=== PATIENT | female | born 1955 | race Caucasian/White ===

== ENCOUNTER 2016-12-11 10:21 | Emergency (ER) | payer MEDICAID ==
[2016-12-11 10:32] VITALS: BMI 28.1
[2016-12-11 10:36] VITALS: BP 130/80; TEMP 97.9
[2016-12-11] MEDS ORDERED: Tetracaine 0.5% Ophth (OR ONLY) ONE (10:39)
[2016-12-11] MEDS ORDERED: Fluorescein 1 mg Ophthalmic Strip ONE (10:39)
--- NOTE | 2016-12-11 10:46 | C.PDOC ---
History Of Present Illness Patient is a 61 year old female who presents to the ER with a complaint of a red right eye that began this morning. Patient states she woke up with watery discharge, irritation, and mild pain. Patient reports walking the other day when something fell in her eye and she washed it out. Patient denies any pain or discomfort until today. Patient has a history of hypertension and denies any vision changes. Time Seen by Provider: 12/11/16 10:27 Chief Complaint (Nursing): Eye Problem History Per: Patient History/Exam Limitations: no limitations Onset/Duration Of Symptoms: Hrs (Since AM) Current Symptoms Are (Timing): Still Present Injury To Eye?: No Associated Symptoms: Pain (Mild), Discharge From Eye. denies: Decreased Vision Past Medical History Reviewed: Historical Data, Nursing Documentation, Vital Signs Vital Signs: Last Vital Signs Temp 97.9 F 12/11/16 10:35 Pulse 92 H 12/11/16 10:49 Resp 18 12/11/16 10:49 BP 130/80 12/11/16 10:35 Pulse Ox 98 12/11/16 10:56 - Medical History PMH: Asthma, HTN Surgical History: Appendectomy - [facility] Procedures CLOSED ENDOSCOPIC BIOPSY OF LARGE INTESTINE (05/21/13) CLOSURE SKIN & SUBCUTANEOUS NEC (06/11/13) ESOPHAGOGASTRODUODENOSCOPY [EGD] W/CLOSED BIOPSY (09/30/14) TETANUS TOXOID ADMINIST (06/11/13) Family History: States: Unknown Family Hx - Social History Hx Tobacco Use: No Hx Alcohol Use: No Hx Substance Use: No - Immunization History Hx Tetanus Toxoid Vaccination: No Hx Influenza Vaccination: No Hx Pneumococcal Vaccination: No Review Of Systems Eyes: Positive for: Pain (Mild), Redness, Other (Irritation). Negative for: Vision Change Physical Exam - Physical Exam Additional Physical Exam Comments: Constitutional: No acute distress. Head: Normocephalic. Atraumatic. Eyes: Injected conjunctivae. Watery discharge. Perilimbic sparing. No corneal defect with fluorescein stain ENT: Moist mucous membranes. Respiratory: No acute respiratory distress. Patient speaking in complete sentences. Skin: No rashes. Neurologic: Alert, no focal deficit. ED Course And Treatment O2 Sat by Pulse Oximetry: 98 Medical Decision Making Medical Decision Making: Will be treated as conjunctivitis, will treat with antibiotic eye drops. Disposition - Disposition Referrals: Moe Guevara MD [Primary Care Provider] - Disposition: HOME/ ROUTINE Disposition Time: 10:44 Condition: STABLE Prescriptions: Polymyxin/Trimethoprim Sulfate [Polytrim Ophth Soln] 1 drop OD Q3H #1 bottle Instructions: Conjunctivitis (ED) - Clinical Impression Clinical Impression: Conjunctivitis - Scribe Statement The provider has reviewed the documentation as recorded by the Scribe Jasper Smith All medical record entries made by the Svenibe were at my direction and personally dictated by me. I have reviewed the chart and agree that the record accurately reflects my personal performance of the history, physical exam, medical decision making, and the department course for this patient. I have also personally directed, reviewed, and agree with the discharge instructions and disposition.
[2016-12-11 10:50] VITALS: PULSE 92; RESP 18
[2016-12-11 10:54] VITALS: O2SAT 98
== END 2016-12-11 10:54 | disposition home or self-care (01) ==
LOC: C.ER 10:21 → SUPCPDRO 10:21 → C.ER 10:54
DX: H10.9 Unspecified conjunctivitis (principal)

== ENCOUNTER 2017-10-24 13:50 | Emergency (ER) | payer MEDICAID ==
[2017-10-24 13:50] VITALS: BMI 28.1
--- NOTE | 2017-10-24 17:14 | C.PDOC ---
History Of Present Illness 62-year-old female with PMHX of asthma and HTN presents to the emergency department with complaints of one week duration of intermittent chest pressure, palpitations and SOB, worse since 2pm today. Patient describes the sensation as one of her heart racing. Patient notes that these symptoms are not similar to her prior asthma exacerbations. Patient denies nausea/vomiting, abdominal pain, diarrhea, cough, fever. Time Seen by Provider: 10/24/17 16:53 Chief Complaint (Nursing): Shortness Of Breath History Per: Patient History/Exam Limitations: no limitations Onset/Duration Of Symptoms: Days Current Symptoms Are (Timing): Still Present Quality: Pressure, "Pain" Current Respiratory Medications: See Home Med List Severity: Mild Past Medical History Reviewed: Historical Data, Nursing Documentation, Vital Signs Vital Signs: Last Vital Signs Temp 98.2 F 10/24/17 14:06 Pulse 126 H 10/24/17 14:06 Resp 20 10/24/17 17:05 BP 142/78 10/24/17 14:06 Pulse Ox 96 10/24/17 18:35 - Medical History PMH: Asthma, HTN Surgical History: Appendectomy - [facility] Procedures CLOSED ENDOSCOPIC BIOPSY OF LARGE INTESTINE (05/21/13) CLOSURE SKIN & SUBCUTANEOUS NEC (06/11/13) ESOPHAGOGASTRODUODENOSCOPY [EGD] W/CLOSED BIOPSY (09/30/14) TETANUS TOXOID ADMINIST (06/11/13) Family History: States: No Known Family Hx - Social History Hx Tobacco Use: No Hx Alcohol Use: No Hx Substance Use: No - Immunization History Hx Tetanus Toxoid Vaccination: No Hx Influenza Vaccination: No Hx Pneumococcal Vaccination: No Review Of Systems Except As Marked, All Systems Reviewed And Found Negative. Constitutional: Negative for: Fever, Weakness Cardiovascular: Positive for: Chest Pain (Pressure). Negative for: Edema, Light Headedness Respiratory: Positive for: Shortness of Breath. Negative for: Cough Gastrointestinal: Negative for: Nausea, Vomiting Musculoskeletal: Negative for: Neck Pain, Back Pain Neurological: Negative for: Weakness, Numbness, Headache, Dizziness Physical Exam - Physical Exam Appears: Well, Non-toxic, No Acute Distress, Other (Speaking in full sentences) Skin: Normal Color, Warm, Dry, No Diaphoretic, No Rash Head: Normacephalic Eye(s): bilateral: PERRL Nose: Normal Oral Mucosa: Moist Lips: Normal Appearing Neck: Normal ROM Chest: Symmetrical Cardiovascular: Rhythm Regular, No Murmur Respiratory: No Decreased Breath Sounds, No Accessory Muscle Use, No Rales, No Rhonchi, No Wheezing Gastrointestinal/Abdominal: Soft, No Tenderness, No Guarding Extremity: Normal ROM Neurological/Psych: Oriented x3, Normal Speech ED Course And Treatment - Laboratory Results Result Diagrams: 10/24/17 17:16 10/24/17 17:16 ECG: Interpreted By Me, Viewed By Me (sinus tachycardia 129 bpm, normal axis, no acute ST/T wave changes) ECG Rhythm: Sinus Rhythm ECG Interpretation: Abnormal Rate From EC O2 Sat by Pulse Oximetry: 96 (RA) Pulse Ox Interpretation: Normal - Radiology CXR: Interpreted by Me, Viewed By Me CXR Interpretation: Yes: No Acute Disease. No: Infiltrates Progress Note: EKG, Bloodwork, Chest X-Ray ordered and reviewed. Patient given PO ASA (she confirms she has no allergic rxn with ASA). - Physician Consult Information Physician Contacted: Sanchez Alberts Outcome Of Conversation: Discussed patient with hospitalist, agrees with admission - will be put in under Dr. Garza, [facility] hospitalist. Disposition - Disposition Disposition Time: 18:35 Condition: STABLE Forms: [facility] (South [place]) - Clinical Impression Clinical Impression: Chest pain, Dyspnea, Palpitations - Scribe Statement The provider has reviewed the documentation as recorded by the Scribe (Glenroy Garcia) All medical record entries made by the Scribe were at my direction and personally dictated by me. I have reviewed the chart and agree that the record accurately reflects my personal performance of the history, physical exam, medical decision making, and the department course for this patient. I have also personally directed, reviewed, and agree with the discharge instructions and disposition.
[2017-10-24 17:22] LABS: BASO # 0.1 K/uL (0.0-0.2); EOS # 0.9 K/uL (0.0-0.7); EOS % 10.8 % (0.0-4.0); HEMOGLOBIN 12.7 g/dL (11.0-16.0); LYMPH # 2.9 K/uL (1.0-4.3); LYMPH % 36.6 % (20.0-40.0); MEAN CELL VOLUME 86.9 fL (81.0-99.0); MEAN CORPUSCULAR HEMOGLOBIN 28.8 pg (27.0-31.0); MEAN CORPUSCULAR HGB CONC 33.2 g/dL (33.0-37.0); MONO # 0.5 K/uL (0.0-0.8); MONO % 6.1 % (0.0-10.0); NEUT # 3.6 K/uL (1.8-7.0); NEUT % 45.5 % (50.0-75.0); RBC 4.41 Mil/uL (3.80-5.20); RED CELL DISTRIBUTION WIDTH 13.6 % (11.5-14.5); WHITE BLOOD COUNT 7.9 K/uL (4.8-10.8)
--- NOTE | 2017-10-24 17:32 | RAD ---
PROCEDURE: CHEST RADIOGRAPH, 1 VIEW HISTORY: SOB COMPARISON: None available. FINDINGS: LUNGS: Suspect minor left basilar atelectasis. PLEURA: No pneumothorax or pleural fluid seen. CARDIOVASCULAR: Heart size is within range of normal. Aorta is slightly ectatic and uncoiled. OSSEOUS STRUCTURES: No significant abnormalities. VISUALIZED UPPER ABDOMEN: Normal. OTHER FINDINGS: None. IMPRESSION: Minor left basilar atelectasis
[2017-10-24 17:34] LABS: PARTIAL THROMBOPLASTIN TIME 30 SECONDS (21-34); PROTHROMBIN TIME 10.6 SECONDS (9.7-12.2)
[2017-10-24 17:36] LABS: ALB/GLOB RATIO 1.3 (1.0-2.1); ALBUMIN 4.3 g/dL (3.5-5.0); ALT/SGPT 28 U/L (9-52); AST/SGOT 26 U/L (14-36); BLOOD UREA NITROGEN 17 mg/dL (7-17); CALCIUM 9.6 mg/dl (8.6-10.4); GFR AFRICAN-AMERICAN > 60; GFR NON-AFRICAN AMERICAN > 60
[2017-10-24 17:38] LABS: D DIMER < 200 ng/mlDDU (0-243)
[2017-10-24 17:47] LABS: CK-MB 2.38 ng/mL (0.0-3.38)
[2017-10-24 19:19] LABS: BARBITURATES, UR NEGATIVE (NEGATIVE); BENZODIAZEPINES, UR NEGATIVE (NEGATIVE); OPIATES, UR NEGATIVE (NEGATIVE); PHENCYCLIDINE, UR NEGATIVE (NEGATIVE)
--- NOTE | 2017-10-24 20:26 | CP.PCM.HP ---
<Joseline Curry - Last Filed: 10/24/17 23:43> History of Present Illness - History of Present Illness History of Present Illness: CC: "My heart is pumping too much and I can't breath." HPI: Patient is a 62 year old female with a past medical history of asthma, hypertension, hyperlipidemia, and colon cancer, who presents to the ED with complaints of shortness of breath palpitations, and chest past that have occurred intermittently over the last week. She reports the symptoms worsened today and that is why she came to the ED. She states she was sitting on the cough when her heart starting "pumping" really fast. She proceeded to get up, walk to the kitchen, and as we was walking, she became very nervous, had chest pain, and had to hold herself up so that she does not fall. Patient states she has chest pain located in the center of her chest that is worse with breathing and feels like a pressure or heavy weight. She has never experienced this in the past. She tried using her inhaler three times today with minimal relief. Patient also notes that she becomes slightly more short of breath when laying down for 1 week. She uses 2 pillows. She lives [address] flights up and becomes short of breath when walking the stairs, but notes that she has always felt short of breath climbing stairs. She currently admits to weakness, headache, chest pain, palpitations, and shortness of breath. Patient denies abdominal pain, n/v, f/c, dysuria, leg pain/swelling, rash, and dizziness. PMD: Dr. Guevara Oncologist: Dr. Simms PMHx: Asthma, HTN, HLD, Colon cancer SurgHx: partial oopherectomy, appendectomy, hemicolectomy FamHx: denies SocHx: denies tobacco, alcohol, and drug use; lives with her son in [place], [place]; Unemployed Allergies: Ciprofloxacin, IV contrast, Seafood, ibuprofen, ketorolac. (rxn: rash ) Medications: Amlodipine 5mg PO daily, Combivent/Respimat 20/100mcg BID. Present on Admission - Present on Admission Any Indicators Present on Admission: No Review of Systems - Constitutional Constitutional: Headache, Weakness. absent: Chills, Fever - EENT Eyes: absent: Change in Vision Ears: absent: Dizziness Nose/Mouth/Throat: absent: Sore Throat - Cardiovascular Cardiovascular: Chest Pain, Dyspnea, Palpitations, Rapid Heart Rate. absent: Leg Edema - Respiratory Respiratory: Dyspnea, Dyspnea on Exertion, Pain on Inspiration. absent: Cough - Gastrointestinal Gastrointestinal: Abdominal Pain. absent: Constipation, Diarrhea, Nausea, Vomiting - Genitourinary Genitourinary: absent: Dysuria, Hematuria, Urinary Frequency - Integumentary Integumentary: absent: Rash, Swelling - Neurological Neurological: Headaches, Weakness. absent: Abnormal Gait, Dizziness, Frequent Falls, Syncope - Psychiatric Psychiatric: absent: Anxiety - Endocrine Endocrine: Palpitations Past Patient History - Infectious Disease Hx of Infectious Diseases: None - Past Medical History & Family History Past Medical History?: Yes - Past Social History Smoking Status: Never Smoked - CARDIAC Hx Hypertension: Yes - PULMONARY Hx Asthma: Yes - NEUROLOGICAL Hx Neurological Disorder: No - HEENT Hx HEENT Problems: No - RENAL Hx Chronic Kidney Disease: No - ENDOCRINE/METABOLIC Hx Endocrine Disorders: No - HEMATOLOGICAL/ONCOLOGICAL Hx Blood Disorders: Yes Hx Cancer: Yes (COLON CA) Hx Chemotherapy: Yes - INTEGUMENTARY Hx Dermatological Problems: No - MUSCULOSKELETAL/RHEUMATOLOGICAL Hx Musculoskeletal Disorders: No - GASTROINTESTINAL Hx Gastrointestinal Disorders: Yes Hx Colostomy: Yes - GENITOURINARY/GYNECOLOGICAL Hx Genitourinary Disorders: No - PSYCHIATRIC Hx Substance Use: No - SURGICAL HISTORY Hx Appendectomy: Yes - ANESTHESIA Hx Anesthesia: Yes Hx Anesthesia Reactions: No Meds Allergies/Adverse Reactions: Allergies Allergy/AdvReac Type Severity Reaction Status Date / Time ciprofloxacin [From Cipro] Allergy Intermediate Verified 12/11/16 10:32 ciprofloxacin HCl Allergy Intermediate Verified 12/11/16 10:32 [From Cipro] FISH Allergy Intermediate Verified 12/11/16 10:32 Iodine and Iodide Containing Allergy Intermediate Verified 12/11/16 10:32 Produc ibuprofen [From Motrin] Allergy RASH Verified 12/11/16 10:32 ketorolac Allergy ITCHING Verified 12/11/16 10:32 seafood Allergy Intermediate Uncoded 12/11/16 10:32 Physical Exam - Constitutional Appears: No Acute Distress - Head Exam Head Exam: ATRAUMATIC, NORMAL INSPECTION - Eye Exam Eye Exam: EOMI, Normal appearance, PERRL - ENT Exam ENT Exam: Mucous Membranes Moist - Respiratory Exam Respiratory Exam: Clear to Auscultation Bilateral, NORMAL BREATHING PATTERN. absent: Rales, Rhonchi, Wheezes, Respiratory Distress - Cardiovascular Exam Cardiovascular Exam: Tachycardia, +S1, +S2. absent: Systolic Murmur - GI/Abdominal Exam GI & Abdominal Exam: Normal Bowel Sounds, Soft. absent: Distended, Firm, Guarding, Mass, Tenderness - Extremities Exam Extremities exam: Positive for: normal inspection. Negative for: pedal edema, tenderness, pedal pulses present - Neurological Exam Neurological exam: Alert, Oriented x3 - Psychiatric Exam Psychiatric exam: Normal Affect, Normal Mood - Skin Skin Exam: Dry, Intact, Normal Color, Warm Results - Vital Signs Recent Vital Signs: Last Vital Signs Temp 98.2 F 10/24/17 14:06 Pulse 126 H 10/24/17 14:06 Resp 20 10/24/17 17:05 BP 142/78 10/24/17 14:06 Pulse Ox 96 10/24/17 18:39 - Labs Result Diagrams: 10/24/17 17:16 10/24/17 17:16 Labs: Laboratory Results - last 24 hr 10/24/17 10/24/17 10/24/17 17:16 17:16 17:16 WBC 7.9 RBC 4.41 Hgb 12.7 Hct 38.3 MCV 86.9 MCH 28.8 MCHC 33.2 RDW 13.6 Plt Count 216 MPV 8.0 Neut % (Auto) 45.5 L Lymph % (Auto) 36.6 King % (Auto) 6.1 Eos % (Auto) 10.8 H Baso % (Auto) 1.0 Neut # (Auto) 3.6 Lymph # (Auto) 2.9 King # (Auto) 0.5 Eos # (Auto) 0.9 H Baso # (Auto) 0.1 PT 10.6 INR 1.0 APTT 30 D-Dimer, Quantitative < 200 Sodium 142 Potassium 3.5 L Chloride 102 Carbon Dioxide 28 Anion Gap 16 BUN 17 Creatinine 0.6 L Est GFR ( Amer) > 60 Est GFR (Non-Af Amer) > 60 POC Glucose (mg/dL) Random Glucose 97 Calcium 9.6 Total Bilirubin 0.3 AST 26 ALT 28 Alkaline Phosphatase 59 Total Creatine Kinase 120 CK-MB (Mass) 2.38 Troponin I < 0.0120 NT-Pro-B Natriuret Pep 55.0 Total Protein 7.6 Albumin 4.3 Globulin 3.3 Albumin/Globulin Ratio 1.3 TSH 3rd Generation Urine Opiates Screen Urine Methadone Screen Ur Barbiturates Screen Ur Phencyclidine Scrn Ur Amphetamines Screen U Benzodiazepines Scrn U Oth Cocaine Metabols U Cannabinoids Screen 10/24/17 10/24/17 10/24/17 17:28 18:45 18:45 WBC RBC Hgb Hct MCV MCH MCHC RDW Plt Count MPV Neut % (Auto) Lymph % (Auto) King % (Auto) Eos % (Auto) Baso % (Auto) Neut # (Auto) Lymph # (Auto) King # (Auto) Eos # (Auto) Baso # (Auto) PT INR APTT D-Dimer, Quantitative Sodium Potassium Chloride Carbon Dioxide Anion Gap BUN Creatinine Est GFR ( Amer) Est GFR (Non-Af Amer) POC Glucose (mg/dL) 101 Random Glucose Calcium Total Bilirubin AST ALT Alkaline Phosphatase Total Creatine Kinase CK-MB (Mass) Troponin I NT-Pro-B Natriuret Pep Total Protein Albumin Globulin Albumin/Globulin Ratio TSH 3rd Generation 1.74 Urine Opiates Screen Negative Urine Methadone Screen Negative Ur Barbiturates Screen Negative Ur Phencyclidine Scrn Negative Ur Amphetamines Screen Negative U Benzodiazepines Scrn Negative U Oth Cocaine Metabols Negative U Cannabinoids Screen Negative Assessment & Plan (1) Chest pain Assessment and Plan: Monitor on telemetry EKG: sinus tachycardia @129bpm Troponin x2- negative; f/u troponin #3 CKMB: 2.38, BNP 55 D-dimer <200 Chest xray: minor left basilar atelectasis TSH: 1.74 UDS: negative A1c: f/u results Lipid panel: f/u results Echo (01/2016): normal structure and function; EF normal range Echo (10/24/17): f/u results Status: Acute (2) Palpitations Assessment and Plan: Monitor on telemetry EKG: sinus tachycardia @129bpm Troponin x2- negative; f/u troponin #3 CKMB: 2.38, BNP 55 D-dimer <200 Chest xray: minor left basilar atelectasis TSH: 1.74 UDS: negative Echo (10/24/17): f/u results Status: Acute (3) Dyspnea Assessment and Plan: History of Asthma D- dimer: <200 Chest xray: minor left basilar atelectasis Continue home medication: Combivent/Respimat 1 puff BID Duonebs Q6 gemma O2 via nasal cannula prn Status: Acute (4) Asthma Assessment and Plan: History of Asthma Continue home medication: Combivent/Respimat 1 puff BID Duonebs Q6 gemma O2 via nasal cannula prn Status: Acute (5) HTN (hypertension) Assessment and Plan: Continue home medication: Amlodipine 5mg PO daily Continue to monitor Status: Acute (6) HLD (hyperlipidemia) Assessment and Plan: History of HLD, however, does not take medication. Lipid panel: f/u results Status: Acute (7) History of colon cancer Assessment and Plan: History of colon cancer Oncologist: Dr. Simms Not currently on chemotherapy/treatment. Patient follows up regularly every 6 months with oncologist. Status: Acute (8) Prophylactic measure Assessment and Plan: Heparin 5000sc Q8, SCDs Protonix 40mg PO daily Heart Healthy Diet, 2 Na Status: Acute <Danis Garza P - Last Filed: 10/25/17 00:57> Results - Vital Signs Recent Vital Signs: Last Vital Signs Temp 98.2 F 10/24/17 14:06 Pulse 126 H 10/24/17 14:06 Resp 20 10/24/17 17:05 BP 142/78 10/24/17 14:06 Pulse Ox 96 10/24/17 18:39 - Labs Result Diagrams: 10/24/17 17:16 10/24/17 17:16 Labs: Laboratory Results - last 24 hr 10/24/17 10/24/17 10/24/17 17:16 17:16 17:16 WBC 7.9 RBC 4.41 Hgb 12.7 Hct 38.3 MCV 86.9 MCH 28.8 MCHC 33.2 RDW 13.6 Plt Count 216 MPV 8.0 Neut % (Auto) 45.5 L Lymph % (Auto) 36.6 King % (Auto) 6.1 Eos % (Auto) 10.8 H Baso % (Auto) 1.0 Neut # (Auto) 3.6 Lymph # (Auto) 2.9 King # (Auto) 0.5 Eos # (Auto) 0.9 H Baso # (Auto) 0.1 PT 10.6 INR 1.0 APTT 30 D-Dimer, Quantitative < 200 Sodium 142 Potassium 3.5 L Chloride 102 Carbon Dioxide 28 Anion Gap 16 BUN 17 Creatinine 0.6 L Est GFR ( Amer) > 60 Est GFR (Non-Af Amer) > 60 POC Glucose (mg/dL) Random Glucose 97 Calcium 9.6 Phosphorus Magnesium Total Bilirubin 0.3 AST 26 ALT 28 Alkaline Phosphatase 59 Total Creatine Kinase 120 CK-MB (Mass) 2.38 Troponin I < 0.0120 NT-Pro-B Natriuret Pep 55.0 Total Protein 7.6 Albumin 4.3 Globulin 3.3 Albumin/Globulin Ratio 1.3 TSH 3rd Generation Urine Opiates Screen Urine Methadone Screen Ur Barbiturates Screen Ur Phencyclidine Scrn Ur Amphetamines Screen U Benzodiazepines Scrn U Oth Cocaine Metabols U Cannabinoids Screen Influenza Typ A,B (EIA) 10/24/17 10/24/17 10/24/17 17:28 18:45 18:45 WBC RBC Hgb Hct MCV MCH MCHC RDW Plt Count MPV Neut % (Auto) Lymph % (Auto) King % (Auto) Eos % (Auto) Baso % (Auto) Neut # (Auto) Lymph # (Auto) King # (Auto) Eos # (Auto) Baso # (Auto) PT INR APTT D-Dimer, Quantitative Sodium Potassium Chloride Carbon Dioxide Anion Gap BUN Creatinine Est GFR ( Amer) Est GFR (Non-Af Amer) POC Glucose (mg/dL) 101 Random Glucose Calcium Phosphorus Magnesium Total Bilirubin AST ALT Alkaline Phosphatase Total Creatine Kinase CK-MB (Mass) Troponin I NT-Pro-B Natriuret Pep Total Protein Albumin Globulin Albumin/Globulin Ratio TSH 3rd Generation 1.74 Urine Opiates Screen Negative Urine Methadone Screen Negative Ur Barbiturates Screen Negative Ur Phencyclidine Scrn Negative Ur Amphetamines Screen Negative U Benzodiazepines Scrn Negative U Oth Cocaine Metabols Negative U Cannabinoids Screen Negative Influenza Typ A,B (EIA) 10/24/17 10/24/17 21:21 21:26 WBC RBC Hgb Hct MCV MCH MCHC RDW Plt Count MPV Neut % (Auto) Lymph % (Auto) King % (Auto) Eos % (Auto) Baso % (Auto) Neut # (Auto) Lymph # (Auto) King # (Auto) Eos # (Auto) Baso # (Auto) PT INR APTT D-Dimer, Quantitative Sodium Potassium Chloride Carbon Dioxide Anion Gap BUN Creatinine Est GFR ( Amer) Est GFR (Non-Af Amer) POC Glucose (mg/dL) Random Glucose Calcium Phosphorus 3.6 Magnesium 1.8 Total Bilirubin AST ALT Alkaline Phosphatase Total Creatine Kinase CK-MB (Mass) Troponin I NT-Pro-B Natriuret Pep Total Protein Albumin Globulin Albumin/Globulin Ratio TSH 3rd Generation Urine Opiates Screen Urine Methadone Screen Ur Barbiturates Screen Ur Phencyclidine Scrn Ur Amphetamines Screen U Benzodiazepines Scrn U Oth Cocaine Metabols U Cannabinoids Screen Influenza Typ A,B (EIA) Negative for flu a/b Attending/Attestation - Attestation I have personally seen and examined this patient.: Yes I have fully participated in the care of the patient.: Yes I have reviewed all pertinent clinical information: Yes Notes (Text): * Presentation due to palpitations intermittent < then 1 min, off and on, x3 days worse today, chronic unchanged sob, patient has h/o asthma/bronchitis, tachycardia in ER only sinus, ddimer < 2, CXR fine. * H/o Colon cancer s/p surgery and chemo * H/o HTN Plan * Observe in tele to check any other rhythm then sinus, and related patient symptoms * Echo due to h/o chemo * If sinus on tele and patient c/o palpitations amlodipne could be changed to cardizem/verapamil * Holter out patient could be recommended if persistent symptoms
[2017-10-24 21:36] LABS: MAGNESIUM 1.8 mg/dL (1.6-2.3)
[2017-10-24] MEDS ORDERED: Potassium Chloride 20 mEq ER Tab PO ONE ×2 (22:27→22:37)
[2017-10-25 01:41] LABS: CK-MB 2.05 ng/mL (0.0-3.38)
[2017-10-25] MEDS: Albuterol-Ipratrop 3 mg / 0.5 (3 ml) UD INH SCH ×2 (02:35→09:31)
[2017-10-25] MEDS ORDERED: Albuterol-Ipratrop 3 mg / 0.5 (3 ml) UD ONE (03:29)
[2017-10-25 05:09] LABS: BASO # 0.1 K/uL (0.0-0.2); BASO % 0.8 % (0.0-2.0); EOS # 0.9 K/uL (0.0-0.7); EOS % 11.9 % (0.0-4.0); HEMOGLOBIN 12.6 g/dL (11.0-16.0); LYMPH # 3.2 K/uL (1.0-4.3); LYMPH % 40.9 % (20.0-40.0); MEAN CELL VOLUME 86.5 fL (81.0-99.0); MEAN CORPUSCULAR HEMOGLOBIN 28.3 pg (27.0-31.0); MEAN CORPUSCULAR HGB CONC 32.8 g/dL (33.0-37.0); MEAN PLATELET VOLUME 8.3 fL (7.2-11.7); MONO # 0.6 K/uL (0.0-0.8); MONO % 7.2 % (0.0-10.0); NEUT % 39.2 % (50.0-75.0); NRBC % 0.1 % (0.0-2.0); RBC 4.43 Mil/uL (3.80-5.20); RED CELL DISTRIBUTION WIDTH 13.9 % (11.5-14.5); WHITE BLOOD COUNT 7.7 K/uL (4.8-10.8)
[2017-10-25 05:29] LABS: LDL CHOLESTEROL 126 mg/dL (0-129)
[2017-10-25 05:51] LABS: ALB/GLOB RATIO 1.2 (1.0-2.1); ALBUMIN 3.9 g/dL (3.5-5.0); ALT/SGPT 28 U/L (9-52); AST/SGOT 25 U/L (14-36); BLOOD UREA NITROGEN 13 mg/dL (7-17); GFR AFRICAN-AMERICAN > 60; GFR NON-AFRICAN AMERICAN > 60; HDL CHOLESTEROL 49 mg/dL (30-70)
[2017-10-25 06:24] LABS: CK-MB 1.63 ng/mL (0.0-3.38)
[2017-10-25 07:50] LABS: MAGNESIUM 1.9 mg/dL (1.6-2.3)
[2017-10-25] MEDS ORDERED: Albuterol-Ipratrop 20 mcg/actuation (4 g) IH SCH (10:00)
[2017-10-25] MEDS ORDERED: Pantoprazole 40 mg EC Tab PO SCH (10:00)
--- NOTE | 2017-10-25 12:27 | CARD ---
APPROVED REPORT EKG Measurement Heart [id number] <Conclusion> Sinus tachycardia Otherwise normal ECG
--- NOTE | 2017-10-25 12:57 | CP.PCM.DIS ---
<Vandana Price - Last Filed: 10/25/17 12:54> Provider - Provider Date of Admission: 10/24/17 18:33 Attending physician: Danis Garza MD Time Spent in preparation of Discharge (in minutes): 35 Hospital Course - Lab Results Lab Results: Most Recent Lab Values WBC 7.7 K/uL (4.8-10.8) 10/25/17 04:51 RBC 4.43 Mil/uL (3.80-5.20) 10/25/17 04:51 Hgb 12.6 g/dL (11.0-16.0) 10/25/17 04:51 Hct 38.4 % (34.0-47.0) 10/25/17 04:51 MCV 86.5 fL (81.0-99.0) 10/25/17 04:51 MCH 28.3 pg (27.0-31.0) 10/25/17 04:51 MCHC 32.8 g/dL (33.0-37.0) L 10/25/17 04:51 RDW 13.9 % (11.5-14.5) 10/25/17 04:51 Plt Count 200 K/uL (130-400) 10/25/17 04:51 MPV 8.3 fL (7.2-11.7) 10/25/17 04:51 Neut % (Auto) 39.2 % (50.0-75.0) L 10/25/17 04:51 Lymph % (Auto) 40.9 % (20.0-40.0) H 10/25/17 04:51 [place] % (Auto) 7.2 % (0.0-10.0) 10/25/17 04:51 Eos % (Auto) 11.9 % (0.0-4.0) H 10/25/17 04:51 Baso % (Auto) 0.8 % (0.0-2.0) 10/25/17 04:51 Neut # (Auto) 3.0 K/uL (1.8-7.0) 10/25/17 04:51 Lymph # (Auto) 3.2 K/uL (1.0-4.3) 10/25/17 04:51 [place] # (Auto) 0.6 K/uL (0.0-0.8) 10/25/17 04:51 Eos # (Auto) 0.9 K/uL (0.0-0.7) H 10/25/17 04:51 Baso # (Auto) 0.1 K/uL (0.0-0.2) 10/25/17 04:51 PT 10.6 SECONDS (9.7-12.2) 10/24/17 17:16 INR 1.0 10/24/17 17:16 APTT 30 SECONDS (21-34) 10/24/17 17:16 D-Dimer, Quantitative < 200 ng/mlDDU (0-243) 10/24/17 17:16 Sodium 141 mmol/L (132-148) 10/25/17 04:51 Potassium 3.8 mmol/L (3.6-5.2) 10/25/17 04:51 Chloride 103 mmol/L (98-107) 10/25/17 04:51 Carbon Dioxide 27 mmol/L (22-30) 10/25/17 04:51 Anion Gap 15 (10-20) 10/25/17 04:51 BUN 13 mg/dL (7-17) 10/25/17 04:51 Creatinine 0.6 mg/dL (0.7-1.2) L 10/25/17 04:51 Est GFR ( Amer) > 60 10/25/17 04:51 Est GFR (Non-Af Amer) > 60 10/25/17 04:51 POC Glucose (mg/dL) 188 mg/dL (65-110) H 10/25/17 11:25 Random Glucose 102 mg/dL (65-105) 10/25/17 04:51 Hemoglobin A1c 5.8 % (4.2-6.5) 10/25/17 04:51 Calcium 9.0 mg/dl (8.6-10.4) 10/25/17 04:51 Phosphorus 3.6 mg/dL (2.5-4.5) 10/25/17 05:38 Magnesium 1.9 mg/dL (1.6-2.3) 10/25/17 05:38 Total Bilirubin 0.5 mg/dL (0.2-1.3) 10/25/17 04:51 AST 25 U/L (14-36) 10/25/17 04:51 ALT 28 U/L (9-52) 10/25/17 04:51 Alkaline Phosphatase 49 U/L (38-126) 10/25/17 04:51 Total Creatine Kinase 74 U/L (30-135) 10/25/17 05:38 CK-MB (Mass) 1.63 ng/mL (0.0-3.38) 10/25/17 05:38 Troponin I < 0.0120 ng/mL (0.00-0.120) 10/25/17 05:38 NT-Pro-B Natriuret Pep 55.0 pg/mL (0-900) 10/24/17 17:16 Total Protein 7.3 g/dL (6.3-8.3) 10/25/17 04:51 Albumin 3.9 g/dL (3.5-5.0) 10/25/17 04:51 Globulin 3.3 gm/dL (2.2-3.9) 10/25/17 04:51 Albumin/Globulin Ratio 1.2 (1.0-2.1) 10/25/17 04:51 Triglycerides 162 mg/dL (0-149) H 10/25/17 04:51 Cholesterol 189 mg/dL (0-199) 10/25/17 04:51 LDL Cholesterol Direct 126 mg/dL (0-129) 10/25/17 04:51 HDL Cholesterol 49 mg/dL (30-70) 10/25/17 04:51 TSH 3rd Generation 1.74 mIU/L (0.46-4.68) 10/24/17 18:45 Urine Opiates Screen Negative (NEGATIVE) 10/24/17 18:45 Urine Methadone Screen Negative (NEGATIVE) 10/24/17 18:45 Ur Barbiturates Screen Negative (NEGATIVE) 10/24/17 18:45 Ur Phencyclidine Scrn Negative (NEGATIVE) 10/24/17 18:45 Ur Amphetamines Screen Negative (NEGATIVE) 10/24/17 18:45 U Benzodiazepines Scrn Negative (NEGATIVE) 10/24/17 18:45 U Oth Cocaine Metabols Negative (NEGATIVE) 10/24/17 18:45 U Cannabinoids Screen Negative (NEGATIVE) 10/24/17 18:45 Influenza Typ A,B (EIA) Negative for flu a/b (NEGATIVE) 10/24/17 21:26 - Hospital Course Hospital Course: Patient is a 62 year old female with a past medical history of asthma, hypertension, hyperlipidemia, and colon cancer, who presents to the ED with complaints of shortness of breath palpitations, and chest past that have occurred intermittently over the last week. She reports the symptoms worsened today and that is why she came to the ED. She states she was sitting on the cough when her heart starting "pumping" really fast. She proceeded to get up, walk to the kitchen, and as we was walking, she became very nervous, had chest pain, and had to hold herself up so that she does not fall. Patient states she has chest pain located in the center of her chest that is worse with breathing and feels like a pressure or heavy weight. She has never experienced this in the past. She tried using her inhaler three times today with minimal relief. Patient also notes that she becomes slightly more short of breath when laying down for 1 week. She uses 2 pillows. She lives 4 flights up and becomes short of breath when walking the stairs, but notes that she has always felt short of breath climbing stairs. She currently admits to weakness, headache, chest pain, palpitations, and shortness of breath. Patient denies abdominal pain, n/v, f/c, dysuria, leg pain/swelling, rash, and dizziness. Patient was admitted to rule out ACS. Troponins were negative and EKG showed no ST segment changes. D-dimer was negative. CXR showed minor left basilar atelectasis. BNP was 55. Patient had echo which will be followed up as out patient. Patient was found to have high cholesterol so she was started on a statin which should be continued on discharge. Patient was told to follow up with her PCP within one week for follow up. Discharge Exam - Head Exam Head Exam: ATRAUMATIC, NORMAL INSPECTION - Eye Exam Eye Exam: EOMI, Normal appearance, PERRL - ENT Exam ENT Exam: Mucous Membranes Moist - Respiratory Exam Respiratory Exam: Clear to PA & Lateral, NORMAL BREATHING PATTERN, UNREMARKABLE - Cardiovascular Exam Cardiovascular Exam: RRR, +S1, +S2 - GI/Abdominal Exam GI & Abdominal Exam: Normal Bowel Sounds, Unremarkable - Extremities Exam Extremities exam: normal inspection - Neurological Exam Neurological exam: Alert, Normal Gait, Oriented x3 - Psychiatric Exam Psychiatric exam: Normal Affect, Normal Mood - Skin Skin Exam: Dry, Intact, Normal Color, Warm Discharge Plan - Discharge Medications Prescriptions: Simvastatin 10 mg PO HS #30 tablet - Follow Up Plan Condition: STABLE Disposition: HOME/ ROUTINE Instructions: Dyspnea (GEN) Additional Instructions: Please follow up with your primary care physician within 1 week. <Jesse Heard - Last Filed: 10/25/17 14:58> Provider - Provider Date of Admission: 10/24/17 18:33 Attending physician: Danis Garza MD Hospital Course - Lab Results Lab Results: Most Recent Lab Values WBC 7.7 K/uL (4.8-10.8) 10/25/17 04:51 RBC 4.43 Mil/uL (3.80-5.20) 10/25/17 04:51 Hgb 12.6 g/dL (11.0-16.0) 10/25/17 04:51 Hct 38.4 % (34.0-47.0) 10/25/17 04:51 MCV 86.5 fL (81.0-99.0) 10/25/17 04:51 MCH 28.3 pg (27.0-31.0) 10/25/17 04:51 MCHC 32.8 g/dL (33.0-37.0) L 10/25/17 04:51 RDW 13.9 % (11.5-14.5) 10/25/17 04:51 Plt Count 200 K/uL (130-400) 10/25/17 04:51 MPV 8.3 fL (7.2-11.7) 10/25/17 04:51 Neut % (Auto) 39.2 % (50.0-75.0) L 10/25/17 04:51 Lymph % (Auto) 40.9 % (20.0-40.0) H 10/25/17 04:51 [place] % (Auto) 7.2 % (0.0-10.0) 10/25/17 04:51 Eos % (Auto) 11.9 % (0.0-4.0) H 10/25/17 04:51 Baso % (Auto) 0.8 % (0.0-2.0) 10/25/17 04:51 Neut # (Auto) 3.0 K/uL (1.8-7.0) 10/25/17 04:51 Lymph # (Auto) 3.2 K/uL (1.0-4.3) 10/25/17 04:51 [place] # (Auto) 0.6 K/uL (0.0-0.8) 10/25/17 04:51 Eos # (Auto) 0.9 K/uL (0.0-0.7) H 10/25/17 04:51 Baso # (Auto) 0.1 K/uL (0.0-0.2) 10/25/17 04:51 PT 10.6 SECONDS (9.7-12.2) 10/24/17 17:16 INR 1.0 10/24/17 17:16 APTT 30 SECONDS (21-34) 10/24/17 17:16 D-Dimer, Quantitative < 200 ng/mlDDU (0-243) 10/24/17 17:16 Sodium 141 mmol/L (132-148) 10/25/17 04:51 Potassium 3.8 mmol/L (3.6-5.2) 10/25/17 04:51 Chloride 103 mmol/L (98-107) 10/25/17 04:51 Carbon Dioxide 27 mmol/L (22-30) 10/25/17 04:51 Anion Gap 15 (10-20) 10/25/17 04:51 BUN 13 mg/dL (7-17) 10/25/17 04:51 Creatinine 0.6 mg/dL (0.7-1.2) L 10/25/17 04:51 Est GFR ( Amer) > 60 10/25/17 04:51 Est GFR (Non-Af Amer) > 60 10/25/17 04:51 POC Glucose (mg/dL) 188 mg/dL (65-110) H 10/25/17 11:25 Random Glucose 102 mg/dL (65-105) 10/25/17 04:51 Hemoglobin A1c 5.8 % (4.2-6.5) 10/25/17 04:51 Calcium 9.0 mg/dl (8.6-10.4) 10/25/17 04:51 Phosphorus 3.6 mg/dL (2.5-4.5) 10/25/17 05:38 Magnesium 1.9 mg/dL (1.6-2.3) 10/25/17 05:38 Total Bilirubin 0.5 mg/dL (0.2-1.3) 10/25/17 04:51 AST 25 U/L (14-36) 10/25/17 04:51 ALT 28 U/L (9-52) 10/25/17 04:51 Alkaline Phosphatase 49 U/L (38-126) 10/25/17 04:51 Total Creatine Kinase 74 U/L (30-135) 10/25/17 05:38 CK-MB (Mass) 1.63 ng/mL (0.0-3.38) 10/25/17 05:38 Troponin I < 0.0120 ng/mL (0.00-0.120) 10/25/17 05:38 NT-Pro-B Natriuret Pep 55.0 pg/mL (0-900) 10/24/17 17:16 Total Protein 7.3 g/dL (6.3-8.3) 10/25/17 04:51 Albumin 3.9 g/dL (3.5-5.0) 10/25/17 04:51 Globulin 3.3 gm/dL (2.2-3.9) 10/25/17 04:51 Albumin/Globulin Ratio 1.2 (1.0-2.1) 10/25/17 04:51 Triglycerides 162 mg/dL (0-149) H 10/25/17 04:51 Cholesterol 189 mg/dL (0-199) 10/25/17 04:51 LDL Cholesterol Direct 126 mg/dL (0-129) 10/25/17 04:51 HDL Cholesterol 49 mg/dL (30-70) 10/25/17 04:51 TSH 3rd Generation 1.74 mIU/L (0.46-4.68) 10/24/17 18:45 Urine Opiates Screen Negative (NEGATIVE) 10/24/17 18:45 Urine Methadone Screen Negative (NEGATIVE) 10/24/17 18:45 Ur Barbiturates Screen Negative (NEGATIVE) 10/24/17 18:45 Ur Phencyclidine Scrn Negative (NEGATIVE) 10/24/17 18:45 Ur Amphetamines Screen Negative (NEGATIVE) 10/24/17 18:45 U Benzodiazepines Scrn Negative (NEGATIVE) 10/24/17 18:45 U Oth Cocaine Metabols Negative (NEGATIVE) 10/24/17 18:45 U Cannabinoids Screen Negative (NEGATIVE) 10/24/17 18:45 Influenza Typ A,B (EIA) Negative for flu a/b (NEGATIVE) 10/24/17 21:26 Attending/Attestation - Attestation I have personally seen and examined this patient.: Yes I have fully participated in the care of the patient.: Yes I have reviewed all pertinent clinical information, including history, physical exam and plan: Yes Notes (Text): 10/25/17 14:58 Medical attending: The patient was seen and examined by me, I saw the patient with the medical transcription. I agree with the above note by the resident - however I need to the point very importantly that after we sat down and discussed with the patient she explained to us that proceeding her having palpitations and chest pain, she had just use her Combivent inhaler. And then shortly thereafter she felt her heart pumping really fast and felt very nervous and anxious. She therefore came to the hospital concerned that she could've had a heart attack. She's been in the hospital she's had 3 negative troponins, she's had 3 EKGs I took a look at them they look fine. A chest x-ray also did not suggest any fluid buildup or pulmonary edema this looks stable to me. She also had a d- dimer that was negative and so I felt comfortable saying that she did not have a pulmonary embolism. Her lab work is also stable as well she has a negative UDS, she is not anemic, and other numbers such as her sodium potassium bicarbonate and creatinine are also stable as well. Her TSH was also normal as well. I had her stand up and walk with a, she was able to walk up and down the hospital hallway and then back to her room without becoming short of breath, she did not have palpitations, she did not have chest pain. Summary at discharge the patient home. I explained to the patient that when she takes her inhaler that he could very likely cause the sensations that she was having thank you Jesse Heard
--- NOTE | 2017-10-25 13:13 | CARD ---
APPROVED REPORT EXAM: Two-dimensional and M-mode echocardiogram with Doppler and color Doppler. Other Information Quality : GoodRhythm : INDICATION Dyspnea Chest Pain Palpitations HISTORY OF COLON CA RISK FACTORS Hypertension Hyperlipidemia 2D DIMENSIONS IVSd0.9 (0.7-1.1cm)LVDd4.0 (3.9-5.9cm) PWd0.8 (0.7-1.1cm)LVDs2.7 (2.5-4.0cm) FS (%) 32.4 %LVEF (%)61.3 (>50%) M-Mode DIMENSIONS Left Atrium (MM)2.40 (2.5-4.0cm)Aortic Root2.83 (2.2-3.7cm) Aortic Cusp Exc.1.83 (1.5-2.0cm) Mitral Valve MV E Lsnvphco118.1cm/sMV A Qiwutlat171.6cm/sE/A ratio1.0 TDI E/Lateral E'0.0E/Medial E'0.0 Tricuspid Valve TR Peak Nwwrdiic242im/sTR Peak Gr.10olEhINOM21cvCe LEFT VENTRICLE The left ventricle is normal size. There is normal left ventricular wall thickness. Left ventricle systolic function is normal. The Ejection Fraction is 55-60%. There is normal LV segmental wall motion. The left ventricular diastolic function is normal. There is no ventricular septal defect visualized. RIGHT VENTRICLE The right ventricle is normal size. The right ventricular systolic function is normal. ATRIA The left atrium is mildly dilated. The right atrium size is normal. AORTIC VALVE The aortic valve is mildly sclerotic. The aortic valve is tri-cuspid. No aortic regurgitation is present. There is no aortic valvular stenosis. MITRAL VALVE The mitral valve is normal in structure. There is no evidence of mitral valve prolapse. Mitral regurgitation is mild. TRICUSPID VALVE The tricuspid valve is normal in structure. There is trace tricuspid regurgitation. There is no pulmonary hypertension. PULMONIC VALVE The pulmonic valve is not well visualized. There is trace pulmonic valvular regurgitation. GREAT VESSELS The aortic root is normal in size. The ascending aorta is normal in size. The IVC is normal in size and collapses >50% with inspiration. PERICARDIAL EFFUSION There is no pericardial effusion. <Conclusion> Left ventricle systolic function is normal. The Ejection Fraction is 55-60%. The left ventricular diastolic function is normal. Mitral regurgitation is mild.
[2017-10-25 15:05] VITALS: BP 130/75; PULSE 93; RESP 18; TEMP 98; O2SAT 98
[2017-10-25] MEDS ORDERED: Rosuvastatin Calcium 2.5 mg Tab PO SCH (22:00)
[2017-10-26] MEDS ORDERED: Albuterol-Ipratrop 20 mcg/actuation (4 g) IH SCH ×2 (08:00)
--- NOTE | 2017-10-26 12:00 | CARD ---
APPROVED REPORT EKG Measurement Heart [id number] [place] [id number] <Conclusion> Normal sinus rhythm with sinus arrhythmia Normal ECG
== END 2017-10-25 15:11 | disposition home or self-care (01) ==
LOC: C.ER 13:50 → UNDOADMOB 18:33 → C.9E 18:33 → C.5S 10-25 12:13 → C.9E 10-25 12:13 → C.5S 10-25 12:17 → UNDODISOB 10-25 12:49
DX: R07.9 Chest pain, unspecified (principal); R00.2 Palpitations; R06.02 Shortness of breath; J45.909 Unspecified asthma, uncomplicated; I10 Essential (primary) hypertension; E78.5 Hyperlipidemia, unspecified
CPT/HCPCS: 71045; 80053; 80061; 80324; 80345; 80346; 80349; 80353; 80358; 80361; 82550; 82553; 82948; 83036; 83735; 83880; 83992; 84100; 84443; 84484; 85025; 85378; 85610; 85730; 87804; 93005; 93306; 94150; 96372; 99285; J1644

== ENCOUNTER 2018-11-21 10:20 | Outpatient (CLI) | payer MEDICAID | END 2018-11-21 10:21 | disposition home or self-care (01) | LOC: C.PAT 10:20 | DX: R22.1 Localized swelling, mass and lump, neck (principal) ==

== ENCOUNTER 2018-11-29 05:42 | Day surgery (SDC) | payer MEDICAID ==
[2018-11-21 10:28] VITALS: BMI 27.3
[2018-11-29] MEDS ORDERED: Lidocaine/Epinephrine 1% 1:100000 10 ML IJ ONE (12:43)
[2018-11-29] MEDS ORDERED: ceFAZolin 1 gm in NS 1 GM/100 ML BAG IVPB ONE (12:43)
[2018-11-29] MEDS ORDERED: Bupivacaine 0.25% 20 ML INJ IJ ONE (12:43)
[2018-11-29] MEDS ORDERED: Midazolam 2 MG/2 ML VIAL ONE (12:52)
[2018-11-29 14:31] VITALS: O2SAT 98
--- NOTE | 2018-11-29 15:34 | PCM.SURG1 ---
Surgeon's Initial Post Op Note - Surgeon's Notes Surgeon: MD Le Cna Ltc: Irene PGY3. Akshat Freitas MS3 Pre-Operative Diagnosis: Left posterior neck sebaceous cyst Operative Findings: Left posterior neck sebaceous cyst Post-Operative Diagnosis: Left posterior neck sebaceous cyst Operation Performed: Excision left posterior neck sebaceous cyst Specimen/Specimens Removed: Left posterior neck sebaceous cyst Estimated Blood Loss: EBL {In ML}: 5 Date of Surgery/Procedure: 11/29/18 Time of Surgery/Procedure: 12:30
[2018-11-29 15:48] VITALS: BP 139/74; PULSE 89; RESP 18; TEMP 98.9
--- NOTE | 2018-12-01 00:10 | OP ---
PROCEDURE DATE: 11/29/2018 PREOPERATIVE DIAGNOSIS: Sebaceous cyst of the posterior neck. POSTOPERATIVE DIAGNOSIS: Skin lesion of the posterior neck. PROCEDURE DONE: 1. Excision of the sebaceous cyst of the posterior neck 2 x 1 cm size. 2. Layered closure of the wound, simple. 3. Excision of the benign skin lesion of the right posterior neck above sebaceous cyst. SURGEON: Bi Lujan MD. CONSULTING NETWORKING ENGINEER: Rick Bonilla DO, PGY-3 resident. ANESTHESIA: General endotracheal tube anesthesia. ESTIMATED BLOOD LOSS: Around 10 mL. DRAINS: None. PATHOLOGY: 1. Sebaceous cyst of the posterior neck was sent for the pathology. 2. Skin lesion of the posterior neck was sent for the pathology. COMPLICATIONS: None. OPERATIVE FINDINGS: The patient had approximately 2 x 1 cm sebaceous cyst of the posterior neck, and the patient had approximately 0.5 x 0.5 cm benign skin lesion just above the sebaceous cyst. DESCRIPTION OF THE PROCEDURE: On intraoperative steps, this is a 63-year-old female who was diagnosed with the sebaceous cyst of the posterior neck, and the patient was consented for the excision of the sebaceous cyst of the posterior neck as well as a skin lesion and brought to the OR, placed supine on the operating table. After induction of the anesthesia, the posterior neck was prepped and draped in the usual sterile fashion. Local anesthesia was injected. Elliptical incision was made. Upper and lower flap was created. Medial and lateral dissection was done. Dissection was carried down deep up to the underlying fascia and sebaceous cyst was completely excised and it was sent off the table for the pathology. Proper hemostasis was achieved. The wound was irrigated and the wound was closed in multiple layers, deep subcutaneous with 3-0 Vicryl, superficial subcutaneous with 3-0 Vicryl, skin with 4-0 Monocryl, and dry sterile dressing was applied. Now the patient had another skin lesion above the sebaceous cyst and that was also isolated. Local anesthesia was injected. Elliptical incision was made and the skin lesion was completely excised and it was sent off the table for pathology and there was proper hemostasis. The wound was closed in one layer, the skin with 4-0 Monocryl and dry sterile dressing was applied. The patient tolerated the procedure well. Count of instrument and gauze was correct. There was no apparent complication. Bi Lujan MD
== END 2018-11-29 17:15 | disposition home or self-care (01) ==
LOC: C.SDS 05:42
PROVIDERS: ATTEND Surgery Surgical Critical Care
DX: L72.3 Sebaceous cyst (principal)
CPT/HCPCS: 11423; 12042; 88304; J0690; J2250